=== PATIENT | female | born 1990 | race Caucasian/White ===

== ENCOUNTER 2017-07-17 12:43 | Emergency (ER) | payer MEDICAID ==
[~2017-07-17] VITALS: Ht 157.5 cm; Wt 71.2 kg
[2017-07-17 12:52] VITALS: BP 149/104
--- NOTE | 2017-07-17 13:00 | NUR ---
Patient ambulated to bed 7. RN evaluating patient at bedside.
--- NOTE | 2017-07-17 13:10 | NUR ---
Dr. Osborne evaluating patient at bedside.
[2017-07-17] MEDS ORDERED: DICYCLOMINE HCL LIQUID 20 MG, ALUMINUM HYD/MAG/SIMETHICONE 30 ML, LIDOCAINE VISCOUS 2% ... PO ONE ×3 (13:15)
--- NOTE | 2017-07-17 13:15 | NUR ---
PATIENT PRESENTS TO ED WITH c/o constant "burning" ruq rlq and epigastric pain radiating to mid sternal chest x 3 days. patient reports n/v but denies diarrhea. patient also reports of heavy etoh consumption past couple of days. hx--asthma rx--"asthma inhaler", patient does not know name; SKIN IS PINK/WARM/DRY; AAOX4 WITH EVEN AND STEADY GAIT; LUNGS CLEAR BL; HR EVEN AND REGULAR; PT DENIES ANY FEVER, CP, SOB, OR COUGH AT THIS TIME; PATIENT STATES PAIN OF 8/10 AT THIS TIME; VSS; PATIENT POSITIONED FOR COMFORT; HOB ELEVATED; BEDRAILS UP X2; BED DOWN. ER MD MADE AWARE OF PT STATUS.
[2017-07-17 13:44] VITALS: BP 137/79
--- NOTE | 2017-07-17 13:44 | NUR ---
Patient discharged with v/s stable. Written and verbal after care instructions given and explained. Patient alert, oriented and verbalized understanding Of instructions. Ambulatory with steady gait. All questions addressed prior to discharge. ID band removed. Patient advised to follow up with PMD. Rx of MOTRIN, PRILOSEC given. Patient educated on indication of medication including possible reaction and side effects. Opportunity to ask questions provided and answered.
== END 2017-07-17 13:44 | disposition home or self-care (01) ==
LOC: MED 12:43
DX: R10.13 Epigastric pain (principal); R11.0 Nausea; K21.9 Gastro-esophageal reflux disease without esophagitis
CPT/HCPCS: 81002; 81025; 99283

== ENCOUNTER 2018-04-11 13:32 | Emergency (ER) | payer MEDICAID ==
[~2018-04-11] VITALS: Ht 157.5 cm; Wt 75.9 kg
[2018-04-11 13:38] VITALS: BP 131/65
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
--- NOTE | 2018-04-11 15:40 | NUR ---
PT. RESTING COMFORTABLY IN BED. VSS. WILL CONTINUE TO MONITOR
--- NOTE | 2018-04-11 16:52 | NUR ---
PT. BACK FROM CT SCAN AT THIS TIME. RR EVEN AND UNLABORED. NO FURTHER COMPLAINTS AT THIS TIME.
[2018-04-11 17:38] VITALS: BP 127/68
--- NOTE | 2018-04-11 17:38 | NUR ---
Patient discharged with v/s stable. Written and verbal after care instructions given and explained. Patient alert, oriented and verbalized understanding of instructions. Ambulatory with steady gait. All questions addressed prior to discharge. ID band removed. Patient advised to follow up with PMD. Rx of AUGMENTIN, BACITRACIN, IBUPROFEN 600MG given. Patient educated on indication of medication including possible reaction and side effects. Opportunity to ask questions provided and answered.
== END 2018-04-11 17:38 | disposition home or self-care (01) ==
LOC: MED 13:32
DX: S00.12XA Contusion of left eyelid and periocular area, initial encounter (principal); S61.251A Open bite of left index finger without damage to nail, initial encounter; H11.32 Conjunctival hemorrhage, left eye; Y04.1XXA Assault by human bite, initial encounter; Y93.89 Activity, other specified; Y92.89 Other specified places as the place of occurrence of the external cause; Y99.8 Other external cause status
CPT/HCPCS: 70486; 81025; 90471; 90715; 99284

== ENCOUNTER 2018-11-07 11:34 | Emergency (ER) | payer MEDICAID ==
[~2018-11-07] VITALS: Ht 152.4 cm; Wt 81.2 kg
[2018-11-07 12:00] VITALS: BP 152/87
--- NOTE | 2018-11-07 12:21 | NUR ---
Patient ambulated to bed 8
--- NOTE | 2018-11-07 13:43 | NUR ---
PT BIB SELF c/o intermittent ruq pain with nausea, bloated x 1 wk, adds urgency/hesistancy/ and frequency x 1 wk. UA DONE, LAB CALLED, U/S AT BEDSIDE, PAIN 5/10 AT THIS TIME. PT DENIES N; SKIN IS INTACT, PINK/WARM/DRY; AAOX4, PERRL, WITH EVEN AND STEADY GAIT; LUNGS CLEAR BL, BREATHING UNLABORED; HR EVEN AND REGULAR, BL PERIPHERAL PULSES PRESENT; BS ACTIVE X4, NO TENDERNESS TO PALPATION. PT DENIES ANY FEVER, CP, SOB, OR COUGH AT THIS TIME; PT STATES 5/10 PAIN AT THIS TIME; VSS; PATIENT POSITIONED FOR COMFORT; HOB ELEVATED; BEDRAILS UP X2; BED DOWN.
--- NOTE | 2018-11-07 13:45 | NUR ---
LAB AT BEDSIDE
[2018-11-07 13:58] LABS: BASOPHILS % (AUTO) 0.4 % (0.0-2.0); EOSINOPHILS # (AUTO) 0.1 K/uL (0-0.4); EOSINOPHILS % (AUTO) 0.7 % (0.0-4.0); HEMATOCRIT 42.4 % (36-48); HEMOGLOBIN 14.5 g/dL (12.0-16.0); LYMPHOCYTES # (AUTO) 2.3 K/uL (2.5-16.5); MEAN CORPUSCULAR HEMOGLOBIN 32 pg (27-31); MEAN CORPUSCULAR HGB CONC 34 g/dL (33-37); MEAN CORPUSCULAR VOLUME 92.3 fL (80-94); MONOCYTES # (AUTO) 0.5 K/uL (0.8-1.0); MONOCYTES % (AUTO) 6.2 % (1.7-9.3); NEUTROPHILS # (AUTO) 5.7 K/uL (1.8-7.7); NEUTROPHILS % (AUTO) 65.7 % (42.2-75.2); PLATELET COUNT (AUTO) 307 K/uL (140-450); RED BLOOD CELL COUNT(AUTO) 4.59 MIL/uL (4.20-5.40); RED CELL DISTRIBUTION WIDTH 13.3 % (11.6-13.7); WHITE BLOOD COUNT (AUTO) 8.7 K/uL (4.8-10.8)
--- NOTE | 2018-11-07 14:07 | NUR ---
checked on pt. us at bedside.
[2018-11-07 14:11] LABS: APPEARANCE,URINE CLOUDY (CLEAR); BILIRUBIN,URINE 1+ (NEGATIVE); BLOOD, URINE NEGATIVE (NEGATIVE); COLOR,URINE YELLOW (YELLOW); LEUKOCYTE ESTERASE ,URINE NEGATIVE (NEGATIVE); NITRITE, URINE NEGATIVE (NEGATIVE); UGLUCOSE NEGATIVE (NEGATIVE)
[2018-11-07 15:39] LABS: CARBON DIOXIDE 28.2 mmol/L (21-32)
[2018-11-07 15:40] LABS: CREATININE 0.7 mg/dL (0.6-1.3); TOTAL BILIRUBIN 0.6 mg/dL (0.0-1.0)
[2018-11-07 15:41] LABS: ALBUMIN 4.2 g/dL (3.4-5.0)
[2018-11-07 15:50] LABS: ANION GAP 13.5 (8-16); POTASSIUM 3.7 mmol/L (3.5-5.1)
[2018-11-07 16:10] VITALS: BP 147/81
--- NOTE | 2018-11-07 16:10 | NUR ---
Patient discharged with v/s stable. Written and verbal after care instructions given and explained. Patient alert, oriented and verbalized understanding of instructions. Ambulatory with steady gait. All questions addressed prior to discharge. ID band removed. Patient advised to follow up with PMD. Opportunity to ask questions provided and answered.
[2018-11-09 06:07] LABS: CHLAMYDIA TRACHOMATIS AMP DNA Negative (Negative)
== END 2018-11-07 16:10 | disposition home or self-care (01) ==
LOC: MED 11:34
DX: R10.32 Left lower quadrant pain (principal); R10.31 Right lower quadrant pain; R35.0 Frequency of micturition; R39.11 Hesitancy of micturition; F17.210 Nicotine dependence, cigarettes, uncomplicated; Z87.19 Personal history of other diseases of the digestive system
CPT/HCPCS: 36415; 76830; 80053; 81003; 81025; 85025; 87086; 87491; 99283; Q0092

== ENCOUNTER 2020-06-30 20:32 | Emergency (ER) | payer MEDICAID ==
[~2020-06-30] VITALS: Ht 149.9 cm; Wt 77.1 kg
[2020-06-30 20:33] VITALS: BP 147/95
--- NOTE | 2020-06-30 20:33 | NUR ---
to bed ambulatory
--- NOTE | 2020-06-30 20:50 | NUR ---
PATIENT AMULATED TO BATHROOM W STEADY GAIT.
[2020-06-30] MEDS ORDERED: NACL 0.9% 1,000 ML IV SCH (21:35)
--- NOTE | 2020-06-30 21:49 | NUR ---
EKG PERFORMED AT BEDSIDE. EKG READS SINUS RHYTHM @ 61
--- NOTE | 2020-06-30 22:01 | NUR ---
LABS DRAWN AND HANDED TO GISSEL FROM [facility].
[2020-06-30 22:10] LABS: BASOPHILS % (AUTO) 0.5 % (0.0-2.0); EOSINOPHILS # (AUTO) 0.1 K/uL (0-0.4); EOSINOPHILS % (AUTO) 1.6 % (0.0-4.0); HEMOGLOBIN 13.9 g/dL (12.0-16.0); LYMPHOCYTES # (AUTO) 2.9 K/uL (2.5-16.5); LYMPHOCYTES % (AUTO) 33.7 % (20.5-51.1); MEAN CORPUSCULAR HEMOGLOBIN 31 pg (27-31); MEAN CORPUSCULAR HGB CONC 34 g/dL (33-37); MEAN CORPUSCULAR VOLUME 91.8 fL (80-94); MONOCYTES # (AUTO) 0.4 K/uL (0.8-1.0); MONOCYTES % (AUTO) 4.8 % (1.7-9.3); NEUTROPHILS # (AUTO) 5.2 K/uL (1.8-7.7); NEUTROPHILS % (AUTO) 59.4 % (42.2-75.2); PLATELET COUNT (AUTO) 296 K/uL (140-450); RED BLOOD CELL COUNT(AUTO) 4.47 MIL/uL (4.20-5.40); RED CELL DISTRIBUTION WIDTH 13.2 % (11.6-13.7); WHITE BLOOD COUNT (AUTO) 8.7 K/uL (4.8-10.8)
--- NOTE | 2020-06-30 22:48 | NUR ---
PATIENT AMBULATED TO BATHROOM W STEADY GAIT. DENIES DIZZYNESS.
[2020-06-30 22:59] LABS: ALBUMIN 4.3 g/dL (3.4-5.0); ANION GAP 9.8 (8-16); CARBON DIOXIDE 26.8 mmol/L (21-32); CREATININE 0.7 mg/dL (0.6-1.3); FREE T4 (FREE THYROXINE) 0.95 ng/dL (0.76-1.46); POTASSIUM 3.6 mmol/L (3.5-5.1); THYROID STIMULATING HORMONE 2.21 uIU/mL (0.34-3.74); TOTAL BILIRUBIN 0.3 mg/dL (0.0-1.0)
--- NOTE | 2020-06-30 23:50 | NUR ---
PATIENT LAYING IN BED EYES CLOSED.VSS
[2020-07-01 00:40] VITALS: BP 121/64
--- NOTE | 2020-07-01 00:40 | NUR ---
Patient discharged with v/s stable. Written and verbal after care instructions given and explained. Patient verbalized understanding. Ambulatory with steady gait. All questions addressed prior to discharge. Advised to follow up with PMD.
== END 2020-07-01 00:40 | disposition home or self-care (01) ==
LOC: MED 20:32
DX: R42 Dizziness and giddiness (principal); R53.1 Weakness
CPT/HCPCS: 36415; 80053; 81002; 81025; 84439; 84443; 84703; 85025; 93005; 96360; 99284; J7030

== ENCOUNTER 2020-10-10 09:14 | Emergency (ER) | payer MEDICAID ==
[~2020-10-10] VITALS: Ht 149.9 cm; Wt 74.8 kg
[2020-10-10 09:24] VITALS: BP 121/75
--- NOTE | 2020-10-10 09:28 | NUR ---
PT TO WAIT IN TENT.
--- NOTE | 2020-10-10 09:38 | NUR ---
DR. JANSEN WITH PT IN TENT FOR FURTHER EVALUATION.
[2020-10-10] MEDS ORDERED: predniSONE 20 MG TAB PO ONE (09:45)
[2020-10-10] MEDS ORDERED: ALBUTEROL SULFATE/IPRATROPIU 3 ML SOL IH ONE (09:45)
[2020-10-10] MEDS ORDERED: ALBUTEROL 0.083% 2.5 MG/3 ML NEBU INH ONE (09:45)
--- NOTE | 2020-10-10 09:45 | NUR ---
Patient ambulated to bed 10 with steady/even gait.
--- NOTE | 2020-10-10 09:48 | NUR ---
Manjit story in ED - 10/10/20 at 0951 by [email or web address] PT AMBULATED TO ER BED 10.
--- NOTE | 2020-10-10 09:50 | NUR ---
RT at bedside.
--- NOTE | 2020-10-10 09:54 | NUR ---
30 y/o F BIB self from home with c/c productive cough and chest discomfort. 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 Pt reports sternal chest discomfort d/t cough, reports cough causes the chest discomfort. Rates 4/10, pressure/intermittent, non-radiating pain. Denies any nausea, vomiting, fever, chill, medications prior to arrival. SpO2 99% on room air; RR 24 even/unlabored. Lung sounds fine crackles. Bed locked in lowest position, side rails x 1, call light in reach. PMH: Asthma Meds: Albuterol NKA Sx: denies
--- NOTE | 2020-10-10 10:50 | NUR ---
Patient reports positive relief after nebulizer treatment. Denies any SOB at this time. SpO2 97% on room air; RR 20 even/unlabored.
--- NOTE | 2020-10-10 10:54 | NUR ---
Dr. Osborne is reevaluating patient at bedside.
[2020-10-10] MEDS ORDERED: PRED20TA5 PO (10:59)
[2020-10-10] MEDS ORDERED: ALBU0.0912 INH (10:59)
[2020-10-10] MEDS ORDERED: IBUP-2213 PO (10:59)
[2020-10-10 11:09] VITALS: BP 128/78
--- NOTE | 2020-10-10 11:09 | NUR ---
Patient discharged with v/s stable. Written and verbal after care instructions given and explained. Patient alert, oriented and verbalized understanding of instructions. Ambulatory with steady gait. All questions addressed prior to discharge. ID band removed. Patient advised to follow up with PMD. Rx of Ibuprofen, Prednisone, Albuterol given. Patient educated on indication of medication including possible reaction and side effects. Opportunity to ask questions provided and answered.
== END 2020-10-10 11:09 | disposition home or self-care (01) ==
LOC: MED 09:14
DX: J45.909 Unspecified asthma, uncomplicated (principal); R51.9 Headache, unspecified; K21.9 Gastro-esophageal reflux disease without esophagitis
CPT/HCPCS: 94640; 99283; J7512; J7613

== ENCOUNTER 2020-12-16 17:27 | Emergency (ER) | payer MEDICAID ==
[~2020-12-16] VITALS: Ht 149.9 cm; Wt 72.6 kg
[~2020-12-16 17:27] MED LIST: ALBU0.0912 INH; IBUP-2213 PO; PRED20TA5 PO
[2020-12-16 17:55] VITALS: BP 146/88
--- NOTE | 2020-12-16 19:35 | NUR ---
PT AMBULATED TO ER BED 2 WITH A STEADY GAIT.
--- NOTE | 2020-12-16 19:45 | NUR ---
30 y/o F BIB self from home c/o N/V/D, +epigastric pain since Tuesday night. Patient A&Ox4, ambulatory, states she had a shrimp cocktail at a restaurant on Tuesday afternoon and began experiencing symptoms Tuesday night. Patient states nausea, vomiting x 2 episodes, and diarrhea x 4 episodes today. Patient states epigastric pain 9/10, sharp/constant, non-radiating. Patient denies dysuria, urinary symptoms, fever, chills, headache, chest pain, low back pain. Epigastric region tender to palpation. Patient reports Ibuprofen 600mg this morning with minor relief to pain. UA collected. VSS; respirations even/unlabored. Bed locked in lowest position, side rails x 1, call light in reach. LMP: 11/24/2020, Last bm: this morning diarrhea "clear/yellow." PMH: asthma Sx: C-sections
[2020-12-16] MEDS: ONDANSETRON 4 MG ODT PO ONE (20:19)
[2020-12-16] MEDS: DICYCLOMINE 10 MG CAP PO ONE (20:19)
[2020-12-16] MEDS: FAMOTIDINE 20 MG TAB PO ONE (20:19)
--- NOTE | 2020-12-16 22:02 | NUR ---
Dr. Montiel is reevaluating patient at bedside
--- NOTE | 2020-12-16 22:08 | NUR ---
Apple juice and saltine crackers given for PO challenge.
[2020-12-16] MEDS ORDERED: ONDA4TAB PO (22:10)
[2020-12-16] MEDS ORDERED: BEN10 PO (22:10)
[2020-12-16 22:31] VITALS: BP 142/71
--- NOTE | 2020-12-16 22:32 | NUR ---
Patient discharged with v/s stable. Written and verbal after care instructions given and explained. Patient alert, oriented and verbalized understanding of instructions. Ambulatory with steady gait. All questions addressed prior to discharge. ID band removed. Patient advised to follow up with PMD. Rx of DICYCLOMINE HYDROCHLORIDE, ONDANSETRON HCL given. Patient educated on indication of medication including possible reaction and side effects. Opportunity to ask questions provided and answered. WORK NOTE GIVEN
== END 2020-12-16 22:32 | disposition home or self-care (01) ==
LOC: MED 17:27
DX: A09 Infectious gastroenteritis and colitis, unspecified (principal); J45.909 Unspecified asthma, uncomplicated; K21.9 Gastro-esophageal reflux disease without esophagitis
CPT/HCPCS: 81002; 81025; 99284; Q0162

== ENCOUNTER 2021-12-22 11:17 | Emergency (ER) | payer MEDICAID ==
[~2021-12-22] VITALS: Ht 149.9 cm; Wt 78.9 kg
[~2021-12-22 11:17] MED LIST changes: +BEN10 PO; +ONDA4TAB PO
[2021-12-22 11:22] VITALS: BP 140/103
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
[2021-12-22] MEDS ORDERED: ATRO1TAB PO (13:12)
--- NOTE | 2021-12-22 13:19 | NUR ---
Nela swab collected and walked to lab, handed to nilesh Barahona tech.
--- NOTE | 2021-12-22 13:30 | NUR ---
Patient discharged with v/s stable. Written and verbal after care instructions about ABD pain and diarrhea given and explained. Patient alert, oriented and verbalized understanding of instructions. Ambulatory with steady gait. All questions addressed prior to discharge. ID band removed. Patient advised to follow up with PMD. Rx of Diphenoxylate given. Patient educated on indication of medication including possible reaction and side effects. Opportunity to ask questions provided and answered.
[2021-12-22 13:31] VITALS: BP 135/95
== END 2021-12-22 13:31 | disposition home or self-care (01) ==
LOC: MED 11:17
DX: R10.31 Right lower quadrant pain (principal); Z20.822 Contact with and (suspected) exposure to COVID-19; J45.909 Unspecified asthma, uncomplicated; K21.9 Gastro-esophageal reflux disease without esophagitis; Z72.89 Other problems related to lifestyle; Z98.890 Other specified postprocedural states
CPT/HCPCS: 81002; 81025; 99283